=== PATIENT | female | born 1955 | race Caucasian/White ===

== ENCOUNTER 2017-12-20 10:24 | Inpatient (IN) | payer OTHER ==
--- NOTE | 2017-12-20 10:53 | EDPHY ---
H & P Stated Complaint: Sudden onset SOB while walking into work. got better with O2. Time Seen by Provider: 12/20/17 10:41 HPI/ROS: Chief Complaint: Shortness of breath HPI: 62-year-old woman who is recently treated with radiation therapy for endometrial cancer had onset of shortness of breath this morning. Patient noticed increased dyspnea on exertion just going from her car into her office and walking down the [place] after getting off the elevator. No chest pain. No leg pain or increasing swelling. No fevers or chills. Some mild cough the last recent weeks which has been largely nonproductive. ROS: 10 point Review of Systems is negative except as noted in the HPI. PMH: Endometrial cancer, type 2 diabetes Social History: No smoking, no alcohol, no recreational drug use Family History: non-contributory Physical Exam: Gen: Awake, Alert, No Distress, morbidly obese HEENT: Nose: no rhinorrhea Eyes: PERRLA, EOMI Mouth: Moist mucosa Neck: Supple, no JVD Chest: nontender, lungs clear to auscultation Heart: S1, S2 normal, no murmur Abd: Soft, non-tender, no guarding Back: no CVA tenderness, no midline tenderness Ext: no edema, non-tender Skin: no rash Neuro: CN II-XII intact, Sensation grossly intact, Strength 5/5 in bilateral upper and lower extremities - Personal History Current Tetanus/Diphtheria Vaccine: Yes Current Tetanus Diphtheria and Acellular Pertussis (TDAP): Yes Tetanus Vaccine Date: WITHIN 10 YRS - Medical/Surgical History Hx Asthma: No Hx Chronic Respiratory Disease: No Hx Diabetes: Yes Hx Cardiac Disease: No Hx Renal Disease: No Hx Cirrhosis: No Hx Alcoholism: No Hx HIV/AIDS: No Hx Splenectomy or Spleen Trauma: No Other PMH: HTN, HERNIA REPAIRX 3, HYST FOR UTERINE CA, DIABETES TYPE 2, HIGH CHOLESTROL , ANXIETY, Morbid Obesiety. - Social History Smoking Status: Never smoked Constitutional: Initial Vital Signs Temperature (C) 36.8 C 12/20/17 10:34 Heart Rate 83 12/20/17 10:34 Respiratory Rate 16 12/20/17 10:34 Blood Pressure 152/82 H 12/20/17 10:34 O2 Sat (%) 94 12/20/17 10:34 O2 Delivery Mode Room Air Allergies/Adverse Reactions: erythromycin base Allergy (Verified 01/30/15 11:00) Penicillins Allergy (Verified 01/30/15 11:00) Sulfa (Sulfonamide Antibiotics) Allergy (Verified 01/30/15 11:00) vancomycin Allergy (Verified 12/20/17 10:33) Home Medications: Medication Instructions Recorded Aspirin 81mg (OTC) 01/30/15 Atenolol 01/30/15 Fish Oil 01/30/15 Glucosamine & Chondroitin Cap 01/30/15 Losartan Potassium 01/30/15 Metformin HCl 01/30/15 Simvastatin 01/30/15 Sertraline HCl [Zoloft 100mg (*)] 12/20/17 Medical Decision Making - Diagnostics EKG Interpretation: ECG time 12:12 p.m. Sinus rhythm with a rate of 75, first-degree AV block, incomplete right bundle-branch block. Imaging Results: Imaging Impressions Chest/Thorax CTA 12/20/17 11:10 Impression: 1. Positive multiple bilateral pulmonary thromboemboli, moderate volume. 2. Right middle lobe patchy atelectasis, parenchymal scarring, versus early pulmonary infarct. 3. No pleural effusion or pneumothorax. 4. Elevated right hemidiaphragm. Findings and recommendations discussed with Emergency Department physician, José Miguel Ramirez MD at 1156 hour, 12/20/2017. Final report concurs with initial preliminary interpretation. A test result has been communicated to a licensed care provider and documented in the [employer] Critical Result system on 12/20/2017 11:56, Message ID [id number]. Imaging: Discussed imaging studies w/ call worker Radiologist ED Course/Re-evaluation: CT scan consistent with bilateral diffuse PEs. I have discussed with the hospitalist. Patient will be admitted under Dr. Townsend for further care. - Data Points Laboratory Results: Laboratory Results 12/20/17 10:24 12/20/17 10:24 12/20/17 12/20/17 10:24 10:24 WBC 8.11 10^3/uL 10^3/uL (3.80-9.50) RBC 5.05 10^6/uL 10^6/uL (4.18-5.33) Hgb 14.0 g/dL g/dL (12.6-16.3) Hct 44.4 % % (38.0-47.0) MCV 87.9 fL fL (81.5-99.8) MCH 27.7 pg L pg (27.9-34.1) MCHC 31.5 g/dL L g/dL (32.4-36.7) RDW 15.5 % H % (11.5-15.2) Plt Count 199 10^3/uL 10^3/uL (150-400) MPV 10.8 fL fL (8.7-11.7) Neut % (Auto) 87.1 % H % (39.3-74.2) Lymph % (Auto) 6.7 % L % (15.0-45.0) [place] % (Auto) 3.9 % L % (4.5-13.0) Eos % (Auto) 1.1 % % (0.6-7.6) Baso % (Auto) 0.7 % % (0.3-1.7) Nucleat RBC Rel Count 0.0 % % (0.0-0.2) Absolute Neuts (auto) 7.06 10^3/uL H 10^3/uL (1.70-6.50) Absolute Lymphs (auto) 0.54 10^3/uL L 10^3/uL (1.00-3.00) Absolute Monos (auto) 0.32 10^3/uL 10^3/uL (0.30-0.80) Absolute Eos (auto) 0.09 10^3/uL 10^3/uL (0.03-0.40) Absolute Basos (auto) 0.06 10^3/uL 10^3/uL (0.02-0.10) Absolute Nucleated RBC 0.00 10^3/uL 10^3/uL (0-0.01) Immature Gran % 0.5 % % (0.0-1.1) Immature Gran # 0.04 10^3/uL 10^3/uL (0.00-0.10) Sodium 141 mEq/L mEq/L (135-145) Potassium 4.7 mEq/L mEq/L (3.5-5.2) Chloride 103 mEq/L mEq/L (97-110) Carbon Dioxide 21 mEq/l L mEq/l (22-31) Anion Gap 17 mEq/L H mEq/L (8-16) BUN 17 mg/dL mg/dL (7-23) Creatinine 0.9 mg/dL mg/dL (0.6-1.0) Estimated GFR > 60 Glucose 169 mg/dL H mg/dL (70-100) Calcium 9.7 mg/dL mg/dL (8.5-10.4) Troponin I 0.015 ng/mL ng/mL (0.000-0.034) Departure - Departure Disposition: [facility] Inpatient Acute Clinical Impression: Pulmonary embolus Condition: Fair Referrals: Patient,NotPresent [Primary Care Provider] - As per Instructions
[2017-12-20 10:56] LABS: PLATELET COUNT 199 10^3/uL (150-400)
[2017-12-20] MEDS ORDERED: IOPAMIDOL (ISOVUE 370) 100 ML BTL IV ONE (11:20)
--- NOTE | 2017-12-20 12:14 | CPEKG ---
Heart Rate: 75 RR Interval: 800 P-R Interval: 232 QRSD Interval: 120 QT Interval: 388 QTC Interval: 434 P [place]: 56 QRS [place]: -54 T Wave [place]: 11 EKG Severity - ABNORMAL ECG - EKG Impression: SINUS RHYTHM EKG Impression: FIRST DEGREE AV BLOCK EKG Impression: INCOMPLETE LEFT BUNDLE BRANCH BLOCK EKG Impression: PROBABLE LEFT VENTRICULAR HYPERTROPHY EKG Impression: CONSIDER ANTERIOR INFARCT Electronically Signed By: José Miguel Ramirez 20-Dec-2017 15:22:00
[2017-12-20] MEDS ORDERED: ONDANSETRON DISINTEGRATING 4 MG TAB PO PRN (12:56)
[2017-12-20] MEDS ORDERED: ONDANSETRON 4 MG/2 ML VIAL IVP PRN (12:56)
[2017-12-20] MEDS: ENOXAPARIN 150 MG/ML SYR SC SCH ×2 (14:22→22:00)
[2017-12-20] MEDS ORDERED: SIMETHICONE 125 MG PO PRN (15:00)
[2017-12-20] MEDS: WARFARIN SODIUM 5 MG TAB PO SCH (16:41)
[2017-12-20] MEDS: GLUCOSAMINE/CHONDROITIN CAP PO SCH (21:59)
[2017-12-20] MEDS: ATORVASTATIN CALCIUM 10 MG TAB PO SCH (21:59)
[2017-12-20] MEDS: ASPIRIN 81 MG CHEWABLE TAB PO SCH (21:59)
[2017-12-21 05:15] LABS: PLATELET COUNT 176 10^3/uL (150-400)
[2017-12-21 05:23] LABS: INR 1.16 (0.83-1.16)
[2017-12-21] MEDS: guaiFENesin 600 MG TAB.ER PO PRN (06:10)
[2017-12-21] MEDS ORDERED: Herbals/Supplements -Info Only PO SCH (09:00)
[2017-12-21] MEDS: ENOXAPARIN 150 MG/ML SYR SC SCH ×2 (09:08→20:44)
[2017-12-21] MEDS: SODIUM CL NASAL 45 ML BTL NS SCH (09:08)
[2017-12-21] MEDS: ATENOLOL 50 MG TAB PO SCH (09:09)
[2017-12-21] MEDS: GLUCOSAMINE/CHONDROITIN CAP PO SCH ×2 (09:09→20:45)
[2017-12-21] MEDS: LOSARTAN POTASSIUM 50 MG TAB PO SCH (09:09)
[2017-12-21] MEDS: SERTRALINE HCL 100 MG TAB PO SCH (09:09)
[2017-12-21] MEDS: LETROZOLE 2.5 MG TAB PO SCH (09:09)
[2017-12-21] MEDS: WARFARIN SODIUM 5 MG TAB PO SCH (16:07)
--- NOTE | 2017-12-21 17:37 | ASMTCMCOM ---
CM Note CM Note Notes: Pt admitted with PE. Spoke with RN. OT recommending home no needs. PT not ordered. Anticipate dc home independently when medically stable. CM will follow if needs/changes. Date Signed: 12/21/2017 05:37 PM Electronically Signed By:Yamilka Quiñonez RN
[2017-12-21] MEDS: ACETAMINOPHEN 325 MG TAB PO PRN (20:44)
[2017-12-21] MEDS: ASPIRIN 81 MG CHEWABLE TAB PO SCH (20:45)
[2017-12-21] MEDS: ATORVASTATIN CALCIUM 10 MG TAB PO SCH (20:45)
--- NOTE | 2017-12-21 21:57 | HOSPPROG ---
Hospitalist Progress Note Assessment/Plan: 62 yo F with PMH of endometrial cancer admitted with sob/doefound to be 2/2 B PE # acute bilateral PE: with RF including malignancy and relative immobility. Started on warfarin and LMWH. # acute hypoxic resp failure: currently requiring supplemental o2 to maintain sats above 90, will continue to wean as able # endometrial cancer: undergoing xrt, continue op mgmt when able # morbid obesity: BMI of 52, recommend lifestyle modification # IP status, will need > 48 hours stay for eval/mgmt of above Patient new to my care. Old records reviewed as above. Subjective: no significant overnighte vents, still quite sob and with SAL, no chest pain Objective: Vital Signs Temp Pulse Resp BP Pulse Ox 36.6 C 65 16 127/65 H 95 12/21/17 19:24 12/21/17 19:24 12/21/17 19:24 12/21/17 19:24 12/21/17 19:24 Laboratory Results 12/21/17 04:44 12/21/17 04:44 12/20/17 12/21/17 12/22/17 05:59 05:59 05:59 Intake Total 0 Balance 0 PT 15.0 SEC (12.0-15.0) 12/21/17 04:44 INR 1.16 (0.83-1.16) 12/21/17 04:44 awake alert obese anicteric op clear rrr no rg cta to ant exam soft nt nd no cce war dry well perfused oriented appropriate ICD10 Worksheet Patient Problems: Problems Problem Status Onset Pulmonary embolus Acute
[2017-12-22] MEDS: LETROZOLE 2.5 MG TAB PO SCH (08:23)
[2017-12-22] MEDS: ENOXAPARIN 150 MG/ML SYR SC SCH ×2 (08:23→20:38)
[2017-12-22] MEDS: ATENOLOL 50 MG TAB PO SCH (08:23)
[2017-12-22] MEDS: GLUCOSAMINE/CHONDROITIN CAP PO SCH ×2 (08:24→20:36)
[2017-12-22] MEDS: SERTRALINE HCL 100 MG TAB PO SCH (08:24)
[2017-12-22] MEDS: LOSARTAN POTASSIUM 50 MG TAB PO SCH (08:24)
--- NOTE | 2017-12-22 08:40 | PDMN ---
Medical Necessity Medical necessity: M290- PE- A-4 days: SOB, hypoxemia ( req 4 L to keep sats> 90%) , hx of Ca( endometrial), DM : acute multiple bilateral PE, anticiapate > 2 midnights ongoing med nec care, monitoring, eval and tx
[2017-12-22] MEDS: SODIUM CL NASAL 45 ML BTL NS SCH ×2 (09:18→16:18)
--- NOTE | 2017-12-22 11:14 | HOSPPROG ---
Hospitalist Progress Note Assessment/Plan: 62 yo F with PMH of endometrial cancer admitted with sob/doefound to be 2/2 B PE # acute bilateral PE: with RF including malignancy and relative immobility. Started on warfarin and LMWH with pharmacy dosing warfarin # acute hypoxic resp failure: currently requiring 2-3L supplemental o2 to maintain sats above 90 (on room air desaturating to low 80s), will continue to wean as able. Will start IS. # endometrial cancer: continue femara, has recently been undergoing xrt # dm2: holding metformin given recent dye load, can resume 12/23 as long as renal function stable # morbid obesity: BMI of 52, recommend lifestyle modification # constipation: started bowel protocol # deconditioning: at baseline with some mobility compromise but now with PE, SOB and hypoxia significantly more compromised. PT/OT to be involved. # IP status, suspect she will need 1-2 more days to regain enough mobility to discharge Subjective: no significant overnight events, patient remains very fatigued and having difficulty with sob with exertion even walking several feet, no sob Objective: Vital Signs Temp Pulse Resp BP Pulse Ox 36.5 C 61 14 127/67 H 97 12/22/17 10:02 12/22/17 10:02 12/22/17 10:02 12/22/17 10:02 12/22/17 10:02 Laboratory Results 12/21/17 04:44 12/21/17 04:44 12/21/17 12/22/17 12/23/17 05:59 05:59 05:59 Intake Total 0 200 Balance 0 200 PT 15.0 SEC (12.0-15.0) 12/21/17 04:44 INR 1.16 (0.83-1.16) 12/21/17 04:44 awake alert obese anicteric op clear rrr no rg cta to ant exam soft nt nd no cce war dry well perfused oriented appropriate ICD10 Worksheet Patient Problems: Problems Problem Status Onset Pulmonary embolus Acute
[2017-12-22] MEDS ORDERED: MAGNESIUM HYDROXIDE 30 ML UDCUP PO PRN (11:15)
[2017-12-22] MEDS ORDERED: LACTULOSE 20 GM/30 ML UDCUP PO PRN (11:15)
[2017-12-22] MEDS ORDERED: POLYETHYLENE GLYCOL 3350 17 GM PKT PO PRN (11:15)
[2017-12-22] MEDS ORDERED: BISACODYL 10 MG SUPP PR PRN (11:15)
[2017-12-22] MEDS ORDERED: HYDROCORTISONE ACETATE 25 MG SUPP PR PRN (11:21)
[2017-12-22] MEDS: SIMETHICONE 80 MG TAB CHEW PO SCH ×3 (12:45→20:36)
[2017-12-22] MEDS: metFORMIN HCL 500 MG TAB PO SCH (16:15)
[2017-12-22] MEDS: WARFARIN SODIUM 5 MG TAB PO SCH (16:15)
[2017-12-22] MEDS: ACETAMINOPHEN 325 MG TAB PO PRN (18:29)
[2017-12-22] MEDS: ATORVASTATIN CALCIUM 10 MG TAB PO SCH (20:36)
[2017-12-22] MEDS: SENNOSIDES/DOCUSATE SODIUM TAB PO SCH (20:37)
[2017-12-22] MEDS: ASPIRIN 81 MG CHEWABLE TAB PO SCH (20:37)
[2017-12-22] MEDS: guaiFENesin 600 MG TAB.ER PO PRN (23:18)
[2017-12-23] MEDS: ACETAMINOPHEN 325 MG TAB PO PRN ×2 (04:26→16:12)
[2017-12-23 05:19] LABS: INR 1.57 (0.83-1.16); PROTIME(PATIENT) 18.9 SEC (12.0-15.0)
[2017-12-23] MEDS ORDERED: SIMETHICONE 80 MG TAB CHEW PO PRN (08:42)
[2017-12-23] MEDS: LETROZOLE 2.5 MG TAB PO SCH (10:15)
[2017-12-23] MEDS: ENOXAPARIN 150 MG/ML SYR SC SCH ×2 (10:15→20:34)
[2017-12-23] MEDS: metFORMIN HCL 500 MG TAB PO SCH ×2 (10:15→18:04)
[2017-12-23] MEDS: SIMETHICONE 80 MG TAB CHEW PO SCH ×4 (10:15→20:33)
[2017-12-23] MEDS: GLUCOSAMINE/CHONDROITIN CAP PO SCH ×2 (10:15→20:33)
[2017-12-23] MEDS: SENNOSIDES/DOCUSATE SODIUM TAB PO SCH ×2 (10:16→20:34)
[2017-12-23] MEDS: SERTRALINE HCL 100 MG TAB PO SCH (10:16)
[2017-12-23] MEDS: ATENOLOL 50 MG TAB PO SCH (10:17)
[2017-12-23] MEDS: LOSARTAN POTASSIUM 50 MG TAB PO SCH (10:17)
[2017-12-23] MEDS: SODIUM CL NASAL 45 ML BTL NS SCH (10:55)
--- NOTE | 2017-12-23 14:34 | HOSPPROG ---
Hospitalist Progress Note Assessment/Plan: 62 yo F with PMH of endometrial cancer admitted with sob/wilkins found to be 2/2 B PE # acute bilateral PE-with RF including malignancy and relative immobility- oxygen saturations 95% on 2 L CTA chest (personally reviewed and interpreted) bilateral pulmonary emboli - INR 1.5 - cont warfarin and LMWH - after patient practice subcutaneous injection - pharmacy education related anticoagulants # acute hypoxic resp failure- 2/2 above - work to wean supplemental oxygen today # endometrial cancer: continue femara, has recently been undergoing xrt # dm2- cont holding metformin # morbid obesity-BMI of 52, recommend lifestyle modification # constipation- cont bowel protocol # deconditioning-PT/OT to be involved. # disposition-anticipate tomorrow with home health Discussed the case with the RN-we will encourage mobilization and prepare the patient for disposition home tomorrow Subjective: Feels very exhausted Objective: Vital Signs Temp Pulse Resp BP Pulse Ox 36.5 C 77 20 142/69 H 90 L 12/23/17 11:33 12/23/17 11:33 12/23/17 11:33 12/23/17 11:33 12/23/17 11:33 Laboratory Results 12/21/17 04:44 12/23/17 04:36 12/22/17 12/23/17 12/24/17 05:59 05:59 05:59 Intake Total 200 Balance 200 PT 18.9 SEC (12.0-15.0) H 12/23/17 04:36 INR 1.57 (0.83-1.16) H 12/23/17 04:36 - Physical Exam Constitutional: no apparent distress Eyes: anicteric sclera Ears, Nose, Mouth, Throat: moist mucous membranes Cardiovascular: regular rate and rhythym Respiratory: no respiratory distress, reduced air movement Gastrointestinal: normoactive bowel sounds Genitourinary: no bladder fullness Skin: warm Musculoskeletal: No asymmetric calves Neurologic: AAOx3 Psychiatric: depressed, flat affect Lymph, Heme, Immunologic: no cervical LAD ICD10 Worksheet Patient Problems: Problems Problem Status Onset Pulmonary embolus Acute
[2017-12-23] MEDS: WARFARIN SODIUM 5 MG TAB PO SCH (16:09)
[2017-12-23] MEDS: ASPIRIN 81 MG CHEWABLE TAB PO SCH (20:33)
[2017-12-23] MEDS: ATORVASTATIN CALCIUM 10 MG TAB PO SCH (20:33)
[2017-12-24 05:44] LABS: INR 2.1 (0.83-1.16); PROTIME(PATIENT) 23.6 SEC (12.0-15.0)
[2017-12-24 07:48] VITALS: BP 138/89; RESP 16; TEMP 98.1; O2SAT 98
[2017-12-24] MEDS: metFORMIN HCL 500 MG TAB PO SCH (07:59)
[2017-12-24] MEDS: ACETAMINOPHEN 325 MG TAB PO PRN (08:04)
--- NOTE | 2017-12-24 09:28 | PDHOMEO2F ---
Home Oxygen Face to Face Home Orders: I certify that a physician or a nurse practitioner or physician's business services assistant has had a [id number] encounter with this patient on the date of this order due to the diagnosis listed, which relates to the primary reason the patient requires home oxygen. Alternative treatments have been tried, or considered, and deemed ineffective. It is anticipated that supplemental oxygen will result in improvement with treatment. Home oxygen qualifying diagnosis: pulmonary embolism Home oxygen secondary diagnosis: OHS SpO2 on room air (%): 86% Frequency of home oxygen needed: continuous Home oxygen liters per minute: 2 Home oxygen delivery device: nasal cannula Concentrator: Yes E-tanks for mobility and back up: Yes If ordering portable O2, is the patient mobile in the home?: Yes I certify that, based on these findings, the home oxygen is medically necessary for this patient for the following length of time. Length of time home oxygen needed: 3 months
[2017-12-24] MEDS: LETROZOLE 2.5 MG TAB PO SCH (09:56)
[2017-12-24] MEDS: ATENOLOL 50 MG TAB PO SCH (09:56)
[2017-12-24] MEDS: LOSARTAN POTASSIUM 50 MG TAB PO SCH (09:57)
[2017-12-24] MEDS: GLUCOSAMINE/CHONDROITIN CAP PO SCH (09:57)
[2017-12-24] MEDS: SERTRALINE HCL 100 MG TAB PO SCH (09:58)
[2017-12-24] MEDS: SENNOSIDES/DOCUSATE SODIUM TAB PO SCH (09:58)
[2017-12-24 09:59] VITALS: PULSE 67
[2017-12-24] MEDS: SODIUM CL NASAL 45 ML BTL NS SCH (09:59)
[2017-12-24] MEDS: SIMETHICONE 80 MG TAB CHEW PO SCH (10:48)
[2017-12-24] MEDS: ENOXAPARIN 150 MG/ML SYR SC SCH (10:50)
--- NOTE | 2017-12-24 15:21 | GDS ---
[f rep st] DISCHARGE SUMMARY DISCHARGE DIAGNOSES: Include: 1. Acute bilateral pulmonary embolism. 2. Acute hypoxic respiratory failure secondary to acute pulmonary embolism. 3. Endometrial cancer, undergoing XRT. 4. Morbid obesity. 5. Diabetes. 6. Hypertension. 7. Hyperlipidemia. HISTORY OF PRESENT ILLNESS: A 62-year-old female who presents with complaints of shortness of breath . For details of the presentation, please see the history and physical dated 12/20/2017. CONSULTATIVE SERVICES: None. PROCEDURES: On 12/20/2017, the patient had a CTA of the chest that showed bilateral pulmonary emboli . HOSPITAL COURSE: 1. Acute pulmonary emboli. The patient was initiated on Lovenox therapy, as well as warfarin, and w as admitted and provided supportive care. On the day of disposition, her oxygen saturations had impr kiet from initial, but she was still requiring 2 L continuous. The patient is being discharged with an INR of 2.1, to follow at her primary care office in 72 hours for her first INR check. She is bein g discharged with Coumadin 5 mg daily and supplemental oxygen. 2. Acute deconditioning. The patient had a prolonged stay secondary to weakness and difficulty jolene thing. On the day of disposition, she is ambulating with supplemental oxygen and is refusing any [facility] or home physical therapy. The patient will follow in the outpatient setting with her PCP. 3. Endometrial carcinoma. The patient is actively receiving care and will resume her normal schedul e with her oncology team. 4. Diabetes. The patient will resume her oral home medications. 5. Hypertension. Blood pressures have been adequately controlled on her home medications. No mast es were made to this regimen. MEDICATIONS AT TIME OF DISPOSITION: Please reference the medication reconciliation printed on 2017. FOLLOWUP APPOINTMENTS: Include with her primary care clinic in 72 hours for first INR check, and in 7-10 days following disposition for her first postdischarge medical followup and assessment of her ox ygen saturations. PENDING STUDIES AT TIME OF DICTATION: None. TIME SPENT: I spent greater than 30 minutes in the planning and coordination of this discharge. /[id number]/MODL
== END 2017-12-24 12:03 | disposition home or self-care (01) | DRG 175 ==
LOC: EDUNIT# → F3E 13:58
PROVIDERS: ADMIT Internal Medicine; ATTEND Hospitalist
DX: I26.99 Other pulmonary embolism without acute cor pulmonale (principal); J96.01 Acute respiratory failure with hypoxia; C54.1 Malignant neoplasm of endometrium; E66.01 Morbid (severe) obesity due to excess calories; Z68.43 Body mass index [BMI] 50.0-59.9, adult; E11.9 Type 2 diabetes mellitus without complications; I10 Essential (primary) hypertension; E78.5 Hyperlipidemia, unspecified; K59.00 Constipation, unspecified; F41.9 Anxiety disorder, unspecified; Z88.0 Allergy status to penicillin; Z88.2 Allergy status to sulfonamides; Z90.710 Acquired absence of both cervix and uterus
CPT/HCPCS: 97165-GO; J1650; Q9967